=== PATIENT | female | born 1995 | race Two or more races ===

== ENCOUNTER 2023-01-20 13:50 | Outpatient (AMB) | payer OTHER, SELFPAY ==
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
[2023-01-20 13:53] VITALS: BP 90/60; PULSE 91; O2SAT 96; BMI 21.1
== END 2023-01-20 14:29 | disposition home or self-care (01) ==
PROVIDERS: Visit Provider Physician Assistant
DX: F41.1 Generalized anxiety disorder (principal); Z80.3 Family history of malignant neoplasm of breast; F33.1 Major depressive disorder, recurrent, moderate; Z13.1 Encounter for screening for diabetes mellitus; F43.10 Post-traumatic stress disorder, unspecified
CPT/HCPCS: 96127; 99204

== ENCOUNTER 2023-05-30 14:48 | Outpatient (AMB) | payer OTHER, SELFPAY ==
[2023-05-30 14:57] VITALS: BP 100/62; PULSE 58; O2SAT 99; BMI 20.9
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
== END 2023-05-30 15:20 | disposition home or self-care (01) ==
PROVIDERS: PCP Physician Assistant; Visit Provider Physician Assistant
DX: R51.9 Headache, unspecified (principal); F41.1 Generalized anxiety disorder; F43.10 Post-traumatic stress disorder, unspecified; F33.1 Major depressive disorder, recurrent, moderate; F51.01 Primary insomnia; F17.290 Nicotine dependence, other tobacco product, uncomplicated
CPT/HCPCS: 99214